=== PATIENT | male | born 1965 | race Caucasian/White ===

== ENCOUNTER 2017-09-22 18:26 | Emergency (ER) | payer OTHER ==
[2017-09-22] MEDS: IBUPROFEN 600 MG TAB PO (19:32)
[2017-09-22 19:43] LABS: ADD UMIC NO; UR ASCORBIC ACID NEGATIVE (NEGATIVE); UR BILIRUBIN (Dip) NEGATIVE (NEGATIVE); UR BLOOD (Dip) NEGATIVE (NEGATIVE); UR CLARITY CLEAR (CLEAR); UR COLOR COLORLESS (YELLOW); UR GLUCOSE (Dip) NEGATIVE (NEGATIVE); UR KETONES (Dip) NEGATIVE (NEGATIVE); UR LEUKOCYTE ESTERASE (Dip) NEGATIVE Leu/ul (NEGATIVE); UR NITRITE (Dip) NEGATIVE (NEGATIVE); UR SPECIFIC GRAVITY (Dip) 1.004 (1.003-1.030); UR TOTAL PROTEIN (Dip) NEGATIVE (NEGATIVE); UR UROBILINOGEN (Dip) NEGATIVE (NEGATIVE)
== END 2017-09-22 21:13 | disposition home or self-care (01) ==
LOC: FTE 18:26
DX: N50.89 Other specified disorders of the male genital organs (principal)
CPT/HCPCS: 76870; 81003; 87591; 99284-25

== ENCOUNTER 2017-09-26 14:29 | Emergency (ER) | payer OTHER | END 2017-09-26 16:33 | disposition home or self-care (01) | LOC: FTE 14:29 | DX: N50.811 Right testicular pain (principal) | CPT/HCPCS: 99282; Z7502 ==